=== PATIENT | female | born 1945 | race Caucasian/White ===

== ENCOUNTER 2023-05-06 05:40 | Inpatient (IN) | payer MEDICARE, OTHER ==
[2023-05-06] VITALS (13 sets, daily range): BP systolic 130–178; BP diastolic 56–95
[~2023-05-06] VITALS: Ht 160 cm; Wt 83.0 kg
[~2023-05-06 05:40] MED LIST: ASPI-1450 PO; ATOR20TA PO; LOSA-381 PO; MECL-134 PO; METO25XL PO; NITR0.4T52 SL; OMEP20 PO; QUET25TA PO; SODIUM CHLORIDE 0.9% 1,000 ML IV ONE; SODIUM CHLORIDE 0.9% 1,000 ML ONE
[2023-05-06] MEDS ORDERED: ASPIRIN 81 MG CHEWABLE TABLET ONE (05:46)
[2023-05-06] MEDS ORDERED: DIAZEPAM 5 MG TABLET ONE (05:47)
[2023-05-06] MEDS ORDERED: DiphenhydrAMINE HCL 50 MG CAPSULE ONE (05:47)
[2023-05-06] MEDS ORDERED: SODIUM BICARBONATE 50 MEQ/50 ML VIAL ONE (06:49)
[2023-05-06] MEDS ORDERED: LIDOCAINE/PF 1% 30 ML VIAL ONE (06:49)
[2023-05-06] MEDS ORDERED: HEPARIN SODIUM 1000 UNITS/NS 1,000 ML ONE (06:50)
[2023-05-06] MEDS ORDERED: IOHEXOL 300 MG/ML 100 ML VIAL ONE (06:50)
[2023-05-06] MEDS ORDERED: DIAZEPAM 5 MG TABLET PO ONE (07:30)
[2023-05-06] MEDS ORDERED: DiphenhydrAMINE HCL 50 MG CAPSULE PO ONE (07:30)
[2023-05-06] MEDS ORDERED: ASPIRIN 81 MG CHEWABLE TABLET PO ONE (07:30)
[2023-05-06] MEDS ORDERED: FentaNYL CITRATE PF 100 MCG/2 ML VIAL ONE (07:39)
[2023-05-06] MEDS ORDERED: MIDAZOLAM HCL 2 MG/2 ML VIAL ONE (07:39)
[2023-05-06] MEDS ORDERED: LIDOCAINE 1% 30 ML/SOD BICARB 8.4% 4 ML SQ ONE (07:45)
[2023-05-06] MEDS ORDERED: HEPARIN SODIUM 2,000 UNITS in HEPARIN SODIUM 1000 UNITS/NS 1,000 ML IARTER ONE (07:45)
[2023-05-06] MEDS ORDERED: IOHEXOL 300 MG/ML 100 ML VIAL IARTER ONE (07:45)
[2023-05-06] MEDS ORDERED: MIDAZOLAM HCL 2 MG/2 ML VIAL IVP ONE (08:00)
[2023-05-06] MEDS ORDERED: FentaNYL CITRATE PF 100 MCG/2 ML VIAL IVP ONE (08:00)
[2023-05-06] MEDS ORDERED: ATROPINE SULFATE 0.1 MG/ML 10 ML SYRINGE IVP ONE (09:53)
[2023-05-06] MEDS ORDERED: NITROGLYCERIN 0.4 MG SUBLINGUAL TABLET #25 SL PRN (11:15)
[2023-05-06] MEDS ORDERED: ACETAMINOPHEN 325 MG TABLET PO PRN (11:15)
[2023-05-06] MEDS ORDERED: ONDANSETRON HCL 4 MG/2 ML VIAL IVP PRN (11:15)
[2023-05-06] MEDS ORDERED: 0.9% SODIUM CHLORIDE 10 ML SYRINGE IVP PRN (11:15)
[2023-05-06] MEDS ORDERED: ALBUTEROL SULFATE 2.5 MG/0.5 ML NEB SOLUTION NEB PRN (11:15)
[2023-05-06] MEDS ORDERED: IPRATROPIUM BROMIDE 0.5 MG/2.5 ML NEB SOLUTION NEB PRN (11:15)
[2023-05-06] MEDS ORDERED: BISACODYL 10 MG RECTAL RECTAL SUPPOSITORY PR PRN (11:15)
[2023-05-06] MEDS ORDERED: DOCUSATE SODIUM 100 MG CAPSULE PO PRN (11:15)
[2023-05-06 11:40] LABS: BASOPHILS % (AUTO) 0.9 % (0.0-2.0); EOSINOPHILS % (AUTO) 1.1 % (1.0-6.0); HEMATOCRIT 35.4 % (36-46); HEMOGLOBIN 11.4 g/dL (12.0-16.0); LYMPHOCYTES # (AUTO) 1.8 K/uL (1.0-4.8); LYMPHOCYTES % (AUTO) 21.6 % (22.0-44.0); MEAN CORPUSCULAR HEMOGLOBIN 29.4 pg (26.0-34.0); MEAN CORPUSCULAR HGB CONC 32.1 G/dL (31.0-37.0); MEAN CORPUSCULAR VOLUME 92 fL (80-100); MONOCYTES # (AUTO) 0.7 K/uL (0.1-1.0); MONOCYTES % (AUTO) 8.6 % (2.0-9.0); NEUTROPHILS # (AUTO) 5.7 K/uL (1.8-7.7); NEUTROPHILS % (AUTO) 67.8 % (40.0-70.0); PLATELET COUNT (AUTO) 221 K/uL (150-450); RED BLOOD CELL COUNT(AUTO) 3.86 MIL/uL (4.00-5.20); RED CELL DISTRIBUTION WIDTH 15.4 % (11.5-14.5)
[2023-05-06 12:00] LABS: ANION GAP 8 mmol/L (8-16); CALCIUM, TOTAL 8.8 mg/dL (8.8-10.5); CARBON DIOXIDE 27 mmol/L (22-29); CHLORIDE 107 mmol/L (98-107); CREATININE 0.75 mg/dL (0.60-1.30); GLOMERULAR FILTR. RATE CALC > 60 mL/min (>60); GLUCOSE,RANDOM 112 mg/dL (70-110); POTASSIUM 3.9 mmol/L (3.5-5.1); SODIUM SERUM 142 mmol/L (136-145)
[2023-05-06 12:21] LABS: GLUCOMETER DEV NAME(LOC) SDS.; GLUCOSE,POINT OF CARE 116 MG/DL (70-110)
[2023-05-06] MEDS: MECLIZINE HCL 25 MG TABLET PO SCH (21:40)
[2023-05-07] VITALS: BP 130/64
[2023-05-07 04:00] VITALS: BP 138/70
[2023-05-07 06:40] LABS: BASOPHILS % (AUTO) 0.6 % (0.0-2.0); EOSINOPHILS % (AUTO) 0.8 % (1.0-6.0); HEMATOCRIT 31.9 % (36-46); HEMOGLOBIN 10.5 g/dL (12.0-16.0); LYMPHOCYTES # (AUTO) 1.8 K/uL (1.0-4.8); LYMPHOCYTES % (AUTO) 21.1 % (22.0-44.0); MEAN CORPUSCULAR HEMOGLOBIN 30.1 pg (26.0-34.0); MEAN CORPUSCULAR VOLUME 91 fL (80-100); MONOCYTES # (AUTO) 0.9 K/uL (0.1-1.0); MONOCYTES % (AUTO) 11.2 % (2.0-9.0); NEUTROPHILS # (AUTO) 5.5 K/uL (1.8-7.7); NEUTROPHILS % (AUTO) 66.3 % (40.0-70.0); PLATELET COUNT (AUTO) 201 K/uL (150-450); RED BLOOD CELL COUNT(AUTO) 3.48 MIL/uL (4.00-5.20); RED CELL DISTRIBUTION WIDTH 14.9 % (11.5-14.5)
[2023-05-07 07:19] VITALS: BP 141/69
[2023-05-07 07:56] LABS: ALANINE AMINOTRANSFERASE 16 U/L (12-78); ALBUMIN 3.1 g/dL (3.4-5.0); ALKALINE PHOSPHATASE 59 U/L (46-116); ANION GAP 7 mmol/L (8-16); ASPARTATE AMINOTRANSFERASE 17 U/L (15-37); BILIRUBIN,TOTAL 0.5 mg/dL (0.1-1.0); CALCIUM, TOTAL 8.8 mg/dL (8.8-10.5); CARBON DIOXIDE 27 mmol/L (22-29); CHLORIDE 105 mmol/L (98-107); CREATININE 0.75 mg/dL (0.60-1.30); GLOMERULAR FILTR. RATE CALC > 60 mL/min (>60); GLUCOSE,RANDOM 101 mg/dL (70-110); SODIUM SERUM 139 mmol/L (136-145); TOTAL PROTEIN, SERUM 6.5 g/dL (6.4-8.2)
[2023-05-07] MEDS: MECLIZINE HCL 25 MG TABLET PO SCH (08:28)
[2023-05-07] MEDS ORDERED: OMEPRAZOLE 20 MG CAPSULE PO SCH (09:00)
[2023-05-07] MEDS ORDERED: ATORVASTATIN CALCIUM 20 MG TABLET PO SCH (09:00)
[2023-05-07] MEDS ORDERED: LOSARTAN POTASSIUM 25 MG TABLET PO SCH (09:00)
[2023-05-07] MEDS ORDERED: METOPROLOL SUCCINATE 25 MG ER TABLET PO SCH (09:00)
[2023-05-07] MEDS ORDERED: QUEtiapine FUMARATE 25 MG TABLET PO SCH (09:00)
[2023-05-07] MEDS ORDERED: ASPIRIN 81 MG CHEWABLE TABLET PO SCH (09:00)
[2023-05-07 11:36] VITALS: BP 119/49
[2023-05-07 12:15] LABS: COVID AG,FIA SOURCE NASAL SWAB
== END 2023-05-07 14:20 | disposition short-term general hospital (02) | DRG 287 ==
LOC: CATHLAB 05:40 → 5S 05:41
PROVIDERS: ADMIT Internal Medicine; ATTEND Internal Medicine
PROC: 4A023N8 Measurement of Cardiac Sampling and Pressure, Bilateral, Percutaneous Approach (ICD-10-PCS; principal; 2023-05-06)
PROC: B2111ZZ Fluoroscopy of Multiple Coronary Arteries using Low Osmolar Contrast (ICD-10-PCS; 2023-05-06)
PROC: B2151ZZ Fluoroscopy of Left Heart using Low Osmolar Contrast (ICD-10-PCS; 2023-05-06)
DX: I25.10 Atherosclerotic heart disease of native coronary artery without angina pectoris (principal); I05.0 Rheumatic mitral stenosis; I27.20 Pulmonary hypertension, unspecified; E78.5 Hyperlipidemia, unspecified; F32.9 Major depressive disorder, single episode, unspecified; I11.9 Hypertensive heart disease without heart failure; Z20.822 Contact with and (suspected) exposure to COVID-19; Z79.82 Long term (current) use of aspirin; Z79.899 Other long term (current) drug therapy
CPT/HCPCS: 80048; 80053; 82962; 85025; 87081; 93005; 93460; 99285; J0461; J1644; J2250; J2405; J3010; J3490; J7030; Q9967